=== PATIENT | female | born 1940 | race Caucasian/White ===

== ENCOUNTER 2017-02-11 13:45 | Day surgery (SDC) | payer MEDICARE, BC ==
[2017-02-11 14:41] VITALS: BP 117/63
== END 2017-02-11 13:46 | disposition home or self-care (01) ==
LOC: AMB 13:45
PROVIDERS: ATTEND Ophthalmology
PROC: 085K3ZZ Destruction of Left Lens, Percutaneous Approach (ICD-10-PCS; principal; 2017-02-11 14:35)
DX: H26.492 Other secondary cataract, left eye (principal); I48.91 Unspecified atrial fibrillation; J44.9 Chronic obstructive pulmonary disease, unspecified; J45.909 Unspecified asthma, uncomplicated; Z68.39 Body mass index [BMI] 39.0-39.9, adult

== ENCOUNTER 2017-03-25 12:13 | Day surgery (SDC) | payer MEDICARE, BC ==
[2017-03-25 13:09] VITALS: BP 118/71
== END 2017-03-25 12:14 | disposition home or self-care (01) ==
LOC: AMB 12:13
PROVIDERS: ATTEND Ophthalmology
PROC: 085J3ZZ Destruction of Right Lens, Percutaneous Approach (ICD-10-PCS; principal; 2017-03-25 12:00)
DX: H26.40 Unspecified secondary cataract (principal); I48.91 Unspecified atrial fibrillation; J44.9 Chronic obstructive pulmonary disease, unspecified; Z68.41 Body mass index [BMI] 40.0-44.9, adult

== ENCOUNTER 2017-06-04 05:55 | Inpatient (IN) | payer MEDICARE, BC ==
[2017-06-04] MEDS ORDERED: ceFAZolin SODIUM 1 GM VIAL IV PRN (06:00)
[2017-06-04] MEDS ORDERED: MORPHINE SULFATE 15 MG TABLET.SA PO PRN (06:00)
[2017-06-04] MEDS ORDERED: TRANEXAMIC ACID 1,000 MG in NORMAL SALINE 100 ML IV PRN (06:00)
[2017-06-04] MEDS ORDERED: ROPIVACAINE HCL/PF 100 MG, EPINEPHrine 0.2 MG, KETOROLAC TROMETHAMINE 30 MG in NORMAL S... IJ PRN (06:00)
[2017-06-04] MEDS ORDERED: VANCOMYCIN HCL 1 GM in DEXTROSE 5 % IN WATER 250 ML IV PRN ×2 (06:00)
[2017-06-04] MEDS: RINGER'S SOLUTION,LACTATED 1,000 ML IV PRN ×2 (07:27→07:40)
[2017-06-04] MEDS ORDERED: RINGER'S SOLUTION,LACTATED 1,000 ML IV ONE ×2 (08:25→09:30)
[2017-06-04] MEDS ORDERED: PROMETHAZINE HCL 5 MG in DEXTROSE 5 % IN WATER 50 ML IV PRN ×2 (11:01)
[2017-06-04] MEDS ORDERED: MAGNESIUM HYDROXIDE 30 ML UDC PO PRN (11:01)
[2017-06-04] MEDS ORDERED: diphenhydrAMINE HCL 50 MG/ML VIAL IV PRN (11:01)
[2017-06-04] MEDS ORDERED: MORPHINE SULFATE 4 MG/ML SYRG IV PRN (11:01)
[2017-06-04] MEDS ORDERED: ACETAMINOPHEN 500 MG TABLET PO PRN (11:01)
[2017-06-04] MEDS ORDERED: MAG HYDROX/ALUMINUM HYD/SIMETH 30 ML UDC PO PRN (11:01)
[2017-06-04] MEDS ORDERED: ONDANSETRON HCL/PF 2 MG/ML VIAL IV PRN (11:01)
--- NOTE | 2017-06-04 11:09 | OR ---
Operative Report - Dictated Report Narrative: Date: 06/04/2017 Preoperative diagnosis: Left Knee degenerative joint disease. Postoperative diagnosis: Left Knee degenerative joint disease. Procedure: Left Total knee arthroplasty. Surgeon: David Ayon M.D. Inspector Mechanical: Charan Silveira PA-C Anesthesia: Spinal with regional block and local periarticular joint injection. Complications: None Specimens: Bone for disposal. Estimated blood loss: Minimal. Tourniquet time: 88 Minutes at 325 millimeters of mercury. Retained implants: Depuy Attune size 8 standard lugged cemented posterior stabilized femoral component. Size 7 fixed-bearing cemented tibial platform. 8 by 6 millimeter posterior stabilized cross-linked tibial insert. 38 millimeter medialized patella button. Indications: Dorothy Is a 76-year-old female with bilateral knee pain. This patient was followed in my clinic for period of time with significant complaints of left knee pain consistent with arthritic changes. They had failed conservative measures including but not limited to activity modification , passage of time, medications, and other conservative measures. Patient wished to proceed with surgical treatment. The risks, benefits, and alternatives were discussed in clinic. The risks of , blood clots, bleeding, infection, nerve/tendon blood vessel/ injury, malposition of components, intraoperative fracture, postoperative limited range of motion, persistent pain, failure of components, and need for additional procedures. Patient wished to proceed consent was obtained after answering all questions. Procedure: After marking the correct extremity on the floor, the patient was taken to the operating room. A timeout was performed. IV antibiotics consisting of 2 g of Ancef were administered prior to the procedure. A regional followed by spinal anesthetic was induced by anesthesia. on the operative table with all bony prominences well-padded. Bills catheter was placed and a bump was placed under the operative side buttock. SCDs and KIRSTIN hose were utilized on the nonoperative leg. A well-padded tourniquet was applied to the operative thigh. The operative leg was then pre-scrubbed with alcohol prepped and draped in a standard sterile fashion. After exsanguinating the extremity with an Esmarch bandage, the tourniquet was inflated. After marking out the anterior knee for standard incision centered over the patella, the skin was incised and dissected down to the joint retinaculum. The joint retinaculum was marked out as well as the horizontal axis of the patella, and a standard medial parapatellar arthrotomy was then made. The most proximal aspect of the quadriceps tendon and the patella tendon insertion were protected from release. A partial synovectomy was performed as well as a resection of the infrapatellar fat pad. The distal femoral fat pad proximal to the trochlea was also resected using cautery. The soft tissues were elevated off the medial aspect of the proximal tibia using a Lara elevator ensuring that we did not transect the medial collateral ligament. Upon initial evaluation range of motion was approximately 0 degrees to 100 degrees of flexion. There were signs of advanced arthrosis in all 3 joint spaces. There were large marginal osteophytes which were removed with a rongeur. The knee was hyperflexed and the patella was tucked laterally. Protecting the surrounding soft tissues with Homans, an entry drill was placed down the femoral canal using Whitesides line for guidance into the entry point. The intramedullary femoral alignment oscar was utilized in order to cut the distal femur in 5 of valgus resecting 9 millimeters of bone. Next the distal femur was sized to a size 8. An anterior referencing guide was utilized to place the distal femoral cutting block in 3 of external rotation. This was pinned into place. The rotation was confirmed both visually and based on anatomic landmarks. The 4 in 1 cutting jig of the appropriate size was utilized in order to make all bony cuts. Retractors were utilized in order to protect surrounding soft tissues. This cut did not result in any excessive notching. We then cut the box centered over the distal femur. This allowed for resection of the anterior and posterior cruciate ligaments. I then turned my attention to the preparation of the tibia. Using an extra medullary tibial alignment oscar, 2 millimeters of bone was resected off the medial articular surface. This was made perpendicular to the mechanical axis of the joint with the alignment oscar centered over the ankle mortise. The alignment oscar was parallel to the mechanical axis, centered over the medial one third of the tibial tubercle, paralleling the anterior surface of the tibia. We then turned our attention to the remaining meniscus and soft tissues. These were removed while protecting the surrounding ligaments and soft tissues. The marginal osteophytes off the anterior, posterior, medial, lateral aspects of the femur and tibia were removed. The tibia was sized out to a size 7. Next the tibia was drilled and punched in an externally rotated position as confirmed with a drop oscar. Next the trial femur and a series of tibial inserts were utilized in order to allow for full extension and maximal flexion. It was found that a 6 millimeter insert gave the best range of motion and stability at multiple flexion points as well as at full extension there was less than 2 mm of gapping both medially and laterally. There is minimal anterior translation with the knee at 90 of flexion and no signs of being able to dislocate the knee. The patella was then prepared. The initial thickness was 25 millimeters. This was reamed down to 13 millimeters parallel to the anterior surface of the patella. It was sized out to a size 38 mm medialized patella button. This was then drilled and trialed. Without any medial restraint the patella tracked appropriately and did not sublux or dislocate. At this point, it was felt these were the appropriate sized implants and all trials were removed. The standard periarticular joint injection consisting of ropivacaine, Toradol, and epinephrine were injected into the periarticular joint tissues. The bony surfaces were thoroughly irrigated with a pulsatile- suction saline irrigation device. A bone plug from the prior resected anterior chamfer cut was placed into the drill hole at the distal femur. The bony surfaces were then dried in preparation for placement of the implants. The cement was vacuum mixed per the clothes drier repairer's instructions. The cement was placed on the dry bony surfaces and posterior aspect of the implants. The implants were impacted into place, removing all extruded cement. At this point anesthesia administered tranexamic acid per protocol intravenously. The knee was placed in extension with axial loading with the trial insert while the cement cured. A dilute 0.35% betadyne-saline solution was used to irrigate the knee and allowed to sit in the knee while the cement cured. Once the cement cured, all remaining extruded cement was removed. The knee was placed through a range of motion with the trial insert to ensure appropriate range of motion and stability. Final range of motion was approximately 0 to 125 degrees. The knee was again thoroughly irrigated with pulsatile saline lavage. The final polyethylene insert was then impacted into place ensuring no retained soft tissues. The remaining periarticular joint injection was injected. The knee was then packed with lap sponges which were soaked with dilute betadyne solution and the tourniquet was let down. Pressure was held for approximately 2 minutes and then hemostasis was obtained using electrocautery to coagulate any bleeding vessels. The knee was then placed over a triangle and the arthrotomy was closed with interrupted #1 Vicryl after thoroughly irrigating the joint. The deep and subcutaneous tissues were closed with interrupted oh and 3-0 Vicryl respectively. Skin was closed with a running subcutaneous 3-0 Monocryl and Prineo dressing. 4 x 4's, ABD, Sof-Rol, and a full leg Arvin wrap were applied. All sponge, needle, blade, and instrument counts were correct prior to closing the wounds. Postoperative condition: The patient was awoken and transferred to the postanesthesia care unit in stable condition. Plan is to be admitted to the inpatient medical/surgical floor postoperatively for 24 hours of IV antibiotics , physical therapy, occupational therapy, and medical co-management. Patient will be weightbearing as tolerated with range of motion as tolerated. DVT prophylaxis will be with SCDs, KIRSTIN hose, and pharmacological anticoagulation. Anticipated hospital stay is approximately 2-4 days.
--- NOTE | 2017-06-04 11:28 | OR ---
Anesthesia Procedure Note - Anesthesia Procedure Note Date of Service: 06/04/17 Narrative: Vital Signs - Last Taken Temp 36.5 C 06/04/17 11:00 Pulse 83 06/04/17 11:20 Resp 16 06/04/17 11:20 BP 161/92 06/04/17 11:20 Pulse Ox 95 06/04/17 11:20 O2 Oxygen Delivery Method Room Air 06/04/17 11:26 ANESTHESIA PROCEDURE NOTE Date of Procedure: 06/04/2017. Time of procedure: 739. Performed by: Dawood Torres CRNA Shop Service Technician: None. Preprocedure diagnosis: Left total knee arthroplasty. Post procedure diagnosis: Same. Procedure: Left ultrasound guided femoral block for postoperative analgesia. Indications: The patient is a 76 -year-old female who is requesting a left ultrasound-guided femoral nerve block for postoperative analgesia related to left total knee arthroplasty. Findings: See below. Details of the procedure: The tissue over the intended target site was cleansed with ChloraPrep. 1 ml Lidocaine 1 % was infiltrated to the skin and subcutaneous tissue. Under sterile technique and ultrasound guidance a 21-gauge block needle was inserted anterior to the left femoral nerve . 30 mL's of 0.5% bupivacaine plus epinephrine 1 200,000 was injected after negative aspiration for blood. Spread of local anesthetic surroundind the femoral nerve was observed throughout the injection with ultrasound. The needle was removed intact. No complications were noted. The images were retained in the Hospital medical database . EBL: Minimal. Fluids: N/A. Specimen: N/A. Post procedure condition: The patient tolerated the procedure well. No complications were noted. Thank you for this consultation. Dawood Torres CRNA
[2017-06-04] MEDS: DEXTROSE 5%-LACTATED RINGERS 1,000 ML IV PRN ×2 (11:52→21:09)
[2017-06-04] MEDS: ceFAZolin SODIUM 1 GM in DEXTROSE 5 % IN WATER 100 ML IV SCH ×4 (12:15→19:18)
[2017-06-04] MEDS: SENNOSIDES/DOCUSATE SODIUM 1 TAB TABLET PO SCH (21:13)
[2017-06-05] MEDS: ceFAZolin SODIUM 1 GM in DEXTROSE 5 % IN WATER 100 ML IV SCH ×2 (00:23)
[2017-06-05] MEDS: oxyCODONE HCL/ACETAMINOPHEN 1 TAB TABLET PO PRN ×4 (02:22→20:53)
[2017-06-05] MEDS: DEXTROSE 5%-LACTATED RINGERS 1,000 ML IV PRN (06:06)
[2017-06-05 06:15] LABS: Hematocrit 30.1 % (37.0-47.0); Hemoglobin 9.8 gm/dL (12.5-16.0); Mean Cell Volume 97.4 fl (78-100); Mean Corpuscular Hemoglobin 31.7 pg (27-31); Mean Corpuscular Hgb Conc 32.6 g/dl (32-36); Mean Platelet Volume 10.5 fl (6.0-9.5); Platelet Count 226 K/mm3 (150-450); Red Blood Count 3.09 M/mm3 (4.2-5.4); Red Cell Distribution Width 13.3 % (11.5-14.0); White Blood Count 8.6 K/mm3 (4.0-10.5)
[2017-06-05 06:29] LABS: Anion Gap 8.2 mmol/L (6.8-13.8); BUN/Creatinine Ratio 14.1 (9.0-21.6); Calcium * 8.1 mg/dL (7.9-10.9); Carbon Dioxide 30.7 mmol/L (24-32.6); Estimated Creat Clear 52.2; Potassium 3.9 mmol/L (3.4-4.6)
[2017-06-05] MEDS ORDERED: BUDESONIDE 0.5 MG/2 ML VIAL.NEB IH SCH (07:45)
--- NOTE | 2017-06-05 08:44 | PN ---
Subjective - Date and Time Seen Date: 06/05/17 Time: 08:38 Subjective Narrative: Pt reports no acute events overnight. Pt pain is well controlled. Pt has only needed minimal pain medication. Pt reports no other concerns. Objective - Vitals Vitals: Last Vital Signs Temp 37.2 C 06/05/17 07:25 Pulse 80 06/05/17 08:22 Resp 18 06/05/17 08:22 BP 141/60 06/05/17 07:25 Pulse Ox 89 L 06/05/17 07:25 - Abnormal Lab Findings Abnormal Lab Findings: Abnormal Lab Results 06/05/17 06/05/17 Range/Units 05:55 05:55 RBC 3.09 L (4.2-5.4) M/mm3 Hgb 9.8 L (12.5-16.0) gm/dL Hct 30.1 L (37.0-47.0) % MCH 31.7 H (27-31) pg MPV 10.5 H (6.0-9.5) fl Random Glucose 123 H (70-110) mg/dL - Exam Constitutional: Present: Alert, Oriented x3, Cooperative, No distress Respiratory: Present: no respiratory distress Extremity: Present: other - LLE--> bandage/wrap c/d/i, SILT, cap refill < 3sec, 5/5 FHL/EHL/PF/DF Cauti Physician Documentation - Urinary Catheter Management Urethral (Bills) Date of Insertion: 06/04/17 Time of Insertion: 08:00 Assessment/Plan Plan Narrative: - 76 y/o female s/p post-op day #1 s/p left total knee arthroplasty - WBAT - PT/OT progress as tolerated - Diet PO as tolerated - DVT prophylaxis SCDs, Fox hose, Lovenox for first 10 days post-op - Pain control Percocet PRN - Maintain bandage in place - MRSA carrier, continue contact precautions - Problems/Diagnosis (1) Osteoarthritis Problem: Acute Qualifiers: Osteoarthritis location: knee Laterality: left (2) Status post total left knee replacement Problem: Acute
[2017-06-05] MEDS: ENOXAPARIN SODIUM 40 MG/0.4 ML SYRG SC SCH (09:56)
[2017-06-05] MEDS ORDERED: NON-FORMULARY 1 DOSE DOSE (Albuterol Sulfate 0.63 MG) IH PRN (16:46)
[2017-06-05] MEDS ORDERED: FUROSEMIDE 20 MG TABLET PO SCH (17:00)
[2017-06-05] MEDS: ALBUTEROL SULFATE 2.5 MG/0.5 ML VIAL.NEB IH PRN (18:01)
[2017-06-05] MEDS: BUDESONIDE 0.5 MG/2 ML VIAL.NEB IH SCH (18:02)
[2017-06-05] MEDS: CARVEDILOL 6.25 MG TABLET PO SCH (20:41)
[2017-06-05] MEDS: SENNOSIDES/DOCUSATE SODIUM 1 TAB TABLET PO SCH (20:42)
[2017-06-05] MEDS ORDERED: POTASSIUM CHLORIDE 10 MEQ TABLET.SA PO SCH (21:00)
[2017-06-05] MEDS ORDERED: CALCIUM CARBONATE/VITAMIN D3 1 TAB TABLET PO SCH (21:00)
[2017-06-05] MEDS ORDERED: ATORVASTATIN CALCIUM 40 MG TABLET PO SCH (21:00)
--- NOTE | 2017-06-05 23:58 | PN ---
Subjective - Date and Time Seen Date: 06/05/17 Objective - Vitals Vitals: Last Vital Signs Temp 37.0 C 06/05/17 22:28 Pulse 93 06/05/17 22:28 Resp 20 06/05/17 22:28 BP 137/89 06/05/17 22:28 Pulse Ox 96 06/05/17 22:28 - Abnormal Lab Findings Abnormal Lab Findings: Abnormal Lab Results 06/05/17 06/05/17 Range/Units 05:55 05:55 RBC 3.09 L (4.2-5.4) M/mm3 Hgb 9.8 L (12.5-16.0) gm/dL Hct 30.1 L (37.0-47.0) % MCH 31.7 H (27-31) pg MPV 10.5 H (6.0-9.5) fl Random Glucose 123 H (70-110) mg/dL Cauti Physician Documentation - Urinary Catheter Management Urethral (Bills) Date of Insertion: 06/04/17 Time of Insertion: 08:00 Date of Removal: 06/05/17 Time of Removal: 09:08
[2017-06-06 06:00] LABS: Hematocrit 31.5 % (37.0-47.0); Mean Cell Volume 98.1 fl (78-100); Mean Corpuscular Hemoglobin 31.2 pg (27-31); Mean Corpuscular Hgb Conc 31.7 g/dl (32-36); Mean Platelet Volume 10.7 fl (6.0-9.5); Platelet Count 218 K/mm3 (150-450); Red Blood Count 3.21 M/mm3 (4.2-5.4); Red Cell Distribution Width 13.4 % (11.5-14.0); White Blood Count 10.1 K/mm3 (4.0-10.5)
[2017-06-06] MEDS: BUDESONIDE 0.5 MG/2 ML VIAL.NEB IH SCH (06:15)
[2017-06-06] MEDS: ALBUTEROL SULFATE 2.5 MG/0.5 ML VIAL.NEB IH PRN (06:17)
[2017-06-06 06:31] LABS: Anion Gap 7.6 mmol/L (6.8-13.8); BUN/Creatinine Ratio 15.2 (9.0-21.6); Calcium * 8.4 mg/dL (7.9-10.9); Carbon Dioxide 32.3 mmol/L (24-32.6); Estimated Creat Clear 56.2; Potassium 3.9 mmol/L (3.4-4.6)
[2017-06-06] MEDS: CARVEDILOL 6.25 MG TABLET PO SCH (08:08)
[2017-06-06] MEDS: oxyCODONE HCL/ACETAMINOPHEN 1 TAB TABLET PO PRN ×2 (08:08→12:24)
[2017-06-06] MEDS ORDERED: MULTIVITAMINS 1 CAP CAPSULE PO SCH (09:00)
[2017-06-06] MEDS ORDERED: LORATADINE 10 MG TABLET PO SCH (09:00)
[2017-06-06] MEDS ORDERED: LISINOPRIL 10 MG TABLET PO SCH (09:00)
--- NOTE | 2017-06-06 09:32 | DS ---
(1) Osteoarthritis Problem: Acute Qualifiers: Osteoarthritis location: knee Laterality: left (2) Status post total left knee replacement Problem: Acute (3) COPD (chronic obstructive pulmonary disease) Problem: Chronic Description of Stay: Pt is a 76 y/o female presents with significant osteoarthritis of her left knee. Pt was admitted s/p left total knee arthroplasty. Pt has been preforming PT/OT post-operatively. Pt has been able to ambulate around her room and make it up and back from the bathroom. Pt does have 2 steps to get in her house and will progress to that today. Pt pain has been will controlled, with reports of only mild pain/soreness. Exam reveals full ROM and strength of EHL/FHL/PF/DF, cap refill < 3 sec, SILT, bandages removed incision is has no erythema, drainage , and is intact. Educated pt on the continued monitoring of incision. Pt will be preforming homecare PT, due to social situation patient reports she will be unable to get to the outpatient PT, and will f/u on 06/19 in our outpatient office. Pt will continue with lovenox, kenny oswaldoe for DVT prophy, also continue using percocet for pain control PRN. She can begin an ASA 325 mg PO after she has completed her course of lovenox. Pt will continue to ambulate with a walker. She can have a PO diet as tolerated and WBAT on LLE. Pt is medically stable with Hgb increasing from 9.8 to 10.0 today. Pt can call our outpatient office with any questions or concerns prior to f/u visit. Procedures Performed: see notes below - Left total knee arthorplasty Discharge Disposition: Home self care Disposition: Home self-care Condition: Good Discharge Activity: Activity as tolerated, Weight bearing Discharge Diet: General/regular food Referrals: Candy Schmitz, NILSA [Primary Care Provider] - Problem Oriented Discharge Instructions to Patient/Family: Total Knee Replacement, Care After, [id number] Print Language (Latvian or Sammarinese Available): Latvian Additional Patient Instructions (free text): Follow up with Dr. Ayon on June at 9:45 am Prescriptions (Any new or edited meds): Enoxaparin Sodium [Lovenox] 40 mg SQ Q24H #8 ml oxyCODONE HCL/ACETAMINOPHEN [Percocet 5 MG/325 MG] 2 tab PO Q4H PRN #90 tablet PRN Reason: Moderate Pain Sennosides/Docusate Sodium [Senokot-S] 2 tab PO HS #30 tablet Complete Home Medications List: Complete Home Medication List: Acetaminophen [Tylenol Arthritis] 1,300 mg PO Q8H PRN 05/27/17 Albuterol Sulfate [Albuterol Sulfate 0.63 MG/3ML] 0.63 mg IH Q4H PRN 05/27/17 Atorvastatin Calcium [Lipitor] 40 mg PO HS 05/27/17 Budesonide [Pulmicort Respules] 2 ml IH BID 05/27/17 Calcium Carbonate/Vitamin D3 [Calcium 600-Vit D3 200 Tablet] 1 each PO HS Carvedilol [Coreg] 6.25 mg PO BID 05/27/17 Furosemide [Lasix] 20 mg PO Q2D 05/27/17 Furosemide [Lasix] 40 mg PO Q2D 05/27/17 Lisinopril [Prinivil] 10 mg PO DAILY 05/27/17 Loratadine [Claritin] 10 mg PO DAILY 05/27/17 Multivitamins [Multivitamin Veronika] 1 cap PO DAILY 05/27/17 Potassium Chloride [Klor-Con M20] 10 meq PO HS 05/27/17 Enoxaparin Sodium [Lovenox] 40 mg SQ Q24H #8 ml 06/06/17 Sennosides/Docusate Sodium [Senokot-S] 2 tab PO HS #30 tablet 06/06/17 oxyCODONE HCL/ACETAMINOPHEN [Percocet 5 MG/325 MG] 2 tab PO Q4H PRN #90 tablet 06/06/17
[2017-06-06] MEDS: ENOXAPARIN SODIUM 40 MG/0.4 ML SYRG SC SCH (09:59)
[2017-06-06 13:22] VITALS: BP 119/49
[2017-06-06] MEDS ORDERED: FUROSEMIDE 40 MG TABLET PO SCH (17:00)
== END 2017-06-06 14:43 | disposition home health service (06) | DRG 470 ==
LOC: MS 05:55
PROVIDERS: ADMIT Orthopaedic Surgery; ATTEND Orthopaedic Surgery
PROC: 0SRD0J9 Replacement of Left Knee Joint with Synthetic Substitute, Cemented, Open Approach (ICD-10-PCS; principal; 2017-06-04 08:00)
DX: M17.0 Bilateral primary osteoarthritis of knee (principal); J44.9 Chronic obstructive pulmonary disease, unspecified; I25.10 Atherosclerotic heart disease of native coronary artery without angina pectoris; I10 Essential (primary) hypertension; Z98.61 Coronary angioplasty status; Z79.82 Long term (current) use of aspirin

== ENCOUNTER 2017-11-12 06:29 | Inpatient (IN) | payer MEDICARE, BC ==
[~2017-11-12 06:29] MED LIST: MORPHINE SULFATE 15 MG TABLET.SA PO PRN; RINGER'S SOLUTION,LACTATED 1,000 ML IV PRN; ROPIVACAINE HCL/PF 100 MG, KETOROLAC TROMETHAMINE 30 MG, EPINEPHrine 0.2 MG in NORMAL S... IJ PRN; TRANEXAMIC ACID 1,000 MG in NORMAL SALINE 100 ML IV PRN; ceFAZolin SODIUM 1 GM VIAL IV PRN
[2017-11-12] MEDS ORDERED: RINGER'S SOLUTION,LACTATED 1,000 ML IV ONE ×2 (07:40→09:02)
[2017-11-12] MEDS ORDERED: oxyCODONE HCL/ACETAMINOPHEN 1 TAB TABLET PO PRN (11:05)
[2017-11-12] MEDS ORDERED: MORPHINE SULFATE 2 MG/ML DISP.SYRIN IV PRN (11:05)
[2017-11-12] MEDS ORDERED: ONDANSETRON HCL/PF 2 MG/ML VIAL IV PRN (11:05)
[2017-11-12] MEDS ORDERED: diphenhydrAMINE HCL 50 MG/ML VIAL IV PRN (11:05)
[2017-11-12] MEDS ORDERED: MAGNESIUM HYDROXIDE 30 ML UDC PO PRN (11:05)
[2017-11-12] MEDS ORDERED: ACETAMINOPHEN 500 MG TABLET PO PRN (11:05)
[2017-11-12] MEDS ORDERED: PROMETHAZINE HCL 5 MG in DEXTROSE 5 % IN WATER 50 ML IV PRN ×2 (11:05)
[2017-11-12] MEDS ORDERED: MAG HYDROX/ALUMINUM HYD/SIMETH 30 ML UDC PO PRN (11:05)
[2017-11-12] MEDS ORDERED: ALBUTEROL SULFATE 5 MG/ML BTL IH PRN (11:08)
--- NOTE | 2017-11-12 11:12 | OR ---
Anesthesia Procedure Note - Anesthesia Procedure Note Date of Service: 11/12/17 Narrative: Vital Signs - Last Taken Temp 37.1 C 11/12/17 11:00 Pulse 82 11/12/17 11:05 Resp 19 11/12/17 11:05 BP 131/68 11/12/17 11:05 Pulse Ox 100 11/12/17 11:05 O2 Oxygen Delivery Method Mask 11/12/17 11:10 ANESTHESIA PROCEDURE NOTE Date of Procedure: 11/12/2017. Time of procedure: 739. Performed by: Dawood Torres CRNA Fine Grade Bulldozer Operator: None. Preprocedure diagnosis: Right knee degenerative disc disease. Post procedure diagnosis: Same. Procedure: Right ultrasound guided adductor canal block with insertion of indwelling catheter for continous nerve block postoperative analgesia. Indications: The patient is a 77 -year-old female, who is requesting a right ultrasound-guided abductor canal block for postoperative analgesia related to right total knee arthroplasty. Findings: See below. Details of the procedure: The tissue over the intended target site was cleansed with ChloraPrepand draped in a sterile fashion. 2 ml Lidocaine 1 % was infiltrated to the skin and subcutaneous tissue at the intended target site. Under sterile technique and ultrasound guidance a 18-gauge Tuohy needle was inserted through the right sartorius muscle to the saphenous nerve just anterior and medial to the superficial femoral artery and vein. 15 mL's of 0.5% bupivacaine was injected after negative aspiration for blood. Needle tip and spread of local anesthetic surrounding the saphenous nerve was observed throughout the injection with real time ultrasound visualization. The Tuohy needle was then removed intact. No complications were noted. The images were retained in the Hospital medical database . EBL: Minimal. Fluids: N/A. Specimen: N/A. Post procedure condition: The patient tolerated the procedure well. No complications were noted. Thank you for this consultation. Dawood Torres CRNA
[2017-11-12] MEDS ORDERED: FUROSEMIDE 40 MG TABLET PO SCH ×2 (11:15→13:00)
[2017-11-12] MEDS ORDERED: FUROSEMIDE 20 MG TABLET PO SCH (11:15)
[2017-11-12] MEDS: NORMAL SALINE 1,000 ML IV PRN ×2 (12:09→20:41)
--- NOTE | 2017-11-12 12:22 | OR ---
Operative Report - Dictated Report Narrative: Date: 11/12/2017 Preoperative diagnosis: Right Knee degenerative joint disease. Postoperative diagnosis: Right Knee degenerative joint disease. Procedure: Right Total knee arthroplasty. Surgeon: David Ayon M.D. Staff Nuclear Medicine Technologist: Charan Silveira PA-C Anesthesia: Spinal with regional block and local periarticular joint injection. Complications: None Specimens: Bone for disposal. Estimated blood loss: Minimal. Tourniquet time: 86 Minutes at 300 millimeters of mercury. Retained implants: Depuy Attune size 8 standard lugged cemented posterior stabilized femoral component. Size 6 fixed-bearing cemented tibial platform. 8 by 6 millimeter posterior stabilized cross-linked tibial insert. 38 millimeter medialized patella button. Indications: Dorothy is a 77-year-old female community ambulator. This patient was followed in my clinic for period of time with significant complaints of right knee pain consistent with arthritic changes. They had failed conservative measures including but not limited to activity modification , passage of time, medications, and other conservative measures. Patient wished to proceed with surgical treatment. The risks, benefits, and alternatives were discussed in clinic. The risks of , blood clots, bleeding, infection, nerve/tendon blood vessel/ injury, malposition of components, intraoperative fracture, postoperative limited range of motion, persistent pain, failure of components, and need for additional procedures. Patient wished to proceed consent was obtained after answering all questions. Procedure: After marking the correct extremity on the floor, the patient was taken to the operating room. A timeout was performed. IV antibiotics consisting of 2 g of Ancef were administered prior to the procedure. A regional followed by spinal anesthetic was induced by anesthesia. on the operative table with all bony prominences well-padded. Bills catheter was placed and a bump was placed under the operative side buttock. SCDs and KIRSTIN hose were utilized on the nonoperative leg. A well-padded tourniquet was applied to the operative thigh. The operative leg was then pre-scrubbed with alcohol prepped and draped in a standard sterile fashion. After exsanguinating the extremity with an Esmarch bandage, the tourniquet was inflated. After marking out the anterior knee for standard incision centered over the patella, the skin was incised and dissected down to the joint retinaculum. The joint retinaculum was marked out as well as the horizontal axis of the patella, and a standard medial parapatellar arthrotomy was then made. The most proximal aspect of the quadriceps tendon and the patella tendon insertion were protected from release. A partial synovectomy was performed as well as a resection of the infrapatellar fat pad. The distal femoral fat pad proximal to the trochlea was also resected using cautery. The soft tissues were elevated off the medial aspect of the proximal tibia using a Lara elevator ensuring that we did not transect the medial collateral ligament. Upon initial evaluation range of motion was approximately 5 degrees to 95 degrees of flexion. There were signs of advanced arthrosis in the medial and patellofemoral joint spaces. There were large marginal osteophytes which were removed with a rongeur. The knee was hyperflexed and the patella was tucked laterally. Protecting the surrounding soft tissues with Homans, an entry drill was placed down the femoral canal using Whitesides line for guidance into the entry point. The intramedullary femoral alignment oscar was utilized in order to cut the distal femur in 5 of valgus resecting 10 millimeters of bone. Next the distal femur was sized to a size 8. A posterior referencing guide was utilized to place the distal femoral cutting block in 3 of external rotation. This was pinned into place. The rotation was confirmed both visually and based on anatomic landmarks. The 4 in 1 cutting jig of the appropriate size was utilized in order to make all bony cuts. Retractors were utilized in order to protect surrounding soft tissues. This cut did not result in any excessive notching. We then cut the box centered over the distal femur. This allowed for resection of the anterior and posterior cruciate ligaments. I then turned my attention to the preparation of the tibia. Using an extra medullary tibial alignment oscar, 3.5 millimeters of bone was resected off the medial articular surface. This was made perpendicular to the mechanical axis of the joint with the alignment oscar centered over the ankle mortise. The alignment oscar was parallel to the mechanical axis, centered over the medial one third of the tibial tubercle, paralleling the anterior surface of the tibia. We then turned our attention to the remaining meniscus and soft tissues. These were removed while protecting the surrounding ligaments and soft tissues. The marginal osteophytes off the anterior, posterior, medial, lateral aspects of the femur and tibia were removed. The tibia was sized out to a size 6. Next the trial femur and a series of tibial inserts were utilized in order to allow for full extension and maximal flexion. It was found that a 8 x 6 millimeter insert gave the best range of motion and stability at multiple flexion points as well as at full extension there was less than 2 mm of gapping both medially and laterally. There was minimal anterior translation with the knee at 90 of flexion and no signs of being able to dislocate the knee. Next the tibia was drilled and punched in an externally rotated position as confirmed with a drop oscar. The patella was then prepared. The initial thickness was 25 millimeters. This was reamed down to 15 millimeters parallel to the anterior surface of the patella. It was sized out to a size 38 medialized patella button. This was then drilled and trialed. Without any medial restraint the patella tracked appropriately and did not sublux or dislocate. At this point, it was felt these were the appropriate sized implants and all trials were removed. The standard periarticular joint injection consisting of ropivacaine, Toradol, and epinephrine were injected into the periarticular joint tissues. The bony surfaces were thoroughly irrigated with a pulsatile- suction saline irrigation device. A bone plug from the prior resected anterior chamfer cut was placed into the drill hole at the distal femur. The bony surfaces were then dried in preparation for placement of the implants. The cement was vacuum mixed per the log loader's instructions. The cement was placed on the dry bony surfaces and posterior aspect of the implants. The implants were impacted into place, removing all extruded cement. At this point anesthesia administered tranexamic acid per protocol intravenously. The knee was placed in extension with axial loading with the trial insert while the cement cured. A dilute 0.35% betadyne-saline solution was used to irrigate the knee and allowed to sit in the knee while the cement cured. Once the cement cured, all remaining extruded cement was removed. The knee was placed through a range of motion with the trial insert to ensure appropriate range of motion and stability. Final range of motion was approximately 0 to 120 degrees. The knee was again thoroughly irrigated with pulsatile saline lavage. The final polyethylene insert was then impacted into place ensuring no retained soft tissues. The remaining periarticular joint injection was injected. The knee was then packed with lap sponges which were soaked with dilute betadyne solution and the tourniquet was let down. Pressure was held for approximately 2 minutes and then hemostasis was obtained using electrocautery to coagulate any bleeding vessels. The knee was then placed over a triangle and the arthrotomy was closed with interrupted #1 Vicryl after thoroughly irrigating the joint. The deep and subcutaneous tissues were closed with interrupted 0 and 3-0 Vicryl respectively. Skin was closed with a running subcutaneous 3-0 Monocryl and Prineo dressing. 4 x 4's, ABD, Sof-Rol, and a full leg Arvin wrap were applied. All sponge, needle, blade, and instrument counts were correct prior to closing the wounds. Postoperative condition: The patient was awoken and transferred to the postanesthesia care unit in stable condition. Plan is to be admitted to the inpatient medical/surgical floor postoperatively for 24 hours of IV antibiotics , physical therapy, occupational therapy, and medical co-management. Patient will be weightbearing as tolerated with range of motion as tolerated. DVT prophylaxis will be with SCDs, KIRSTIN hose, and pharmacological anticoagulation. Anticipated hospital stay is approximately 2-4 days.
[2017-11-12] MEDS: ceFAZolin SODIUM 2 GM in DEXTROSE 5 % IN WATER 50 ML IV SCH ×4 (13:22→20:43)
[2017-11-12] MEDS: oxyCODONE HCL/ACETAMINOPHEN 1 TAB TABLET PO PRN ×2 (14:05→22:27)
[2017-11-12] MEDS: BUDESONIDE 0.5 MG/2 ML VIAL.NEB IH SCH (19:22)
[2017-11-12] MEDS: POTASSIUM CHLORIDE 10 MEQ TABLET.SA PO SCH (20:44)
[2017-11-12] MEDS: CARVEDILOL 6.25 MG TABLET PO SCH (20:44)
[2017-11-12] MEDS: ATORVASTATIN CALCIUM 40 MG TABLET PO SCH (20:45)
[2017-11-12] MEDS: SENNOSIDES/DOCUSATE SODIUM 1 TAB TABLET PO SCH (20:45)
[2017-11-13] MEDS: oxyCODONE HCL/ACETAMINOPHEN 1 TAB TABLET PO PRN ×4 (02:37→20:04)
[2017-11-13] MEDS: ceFAZolin SODIUM 2 GM in DEXTROSE 5 % IN WATER 50 ML IV SCH ×2 (03:57)
[2017-11-13 06:19] LABS: Hematocrit 31.3 % (37.0-47.0); Hemoglobin 9.9 gm/dL (12.5-16.0); Mean Cell Volume 95.4 fl (78-100); Mean Corpuscular Hemoglobin 30.2 pg (27-31); Mean Corpuscular Hgb Conc 31.6 g/dl (32-36); Platelet Count 233 K/mm3 (150-450); Red Blood Count 3.28 M/mm3 (4.2-5.4); Red Cell Distribution Width 14.8 % (11.5-14.0); White Blood Count 6.9 K/mm3 (4.0-10.5)
[2017-11-13] MEDS: BUDESONIDE 0.5 MG/2 ML VIAL.NEB IH SCH ×2 (06:26→18:25)
[2017-11-13 06:55] LABS: Anion Gap 10.2 mmol/L (6.8-13.8); BUN/Creatinine Ratio 20.5 (9.0-21.6); Calcium * 7.9 mg/dL (7.9-10.9); Carbon Dioxide 29.7 mmol/L (24-32.6); Potassium 3.9 mmol/L (3.4-4.6)
[2017-11-13] MEDS: LISINOPRIL 10 MG TABLET PO SCH (08:37)
[2017-11-13] MEDS: CARVEDILOL 6.25 MG TABLET PO SCH ×2 (08:37→20:05)
[2017-11-13] MEDS ORDERED: FUROSEMIDE 20 MG TABLET PO SCH (09:00)
--- NOTE | 2017-11-13 09:05 | PN ---
Subjective - Date and Time Seen Date: 11/13/17 Time: 07:25 Subjective Narrative: She reports no acute events overnight. Pain is well controlled. States she feels a little stiff, reports she has already been up and waking and wants to eat breakfast. Objective - Vitals Vitals: Last Vital Signs Temp 37 C 11/13/17 07:43 Pulse 80 11/13/17 08:37 Resp 18 11/13/17 07:43 BP 117/59 11/13/17 08:37 Pulse Ox 94 11/13/17 07:43 - Abnormal Lab Findings Abnormal Lab Findings: Abnormal Lab Results 11/13/17 11/13/17 Range/Units 06:14 06:14 RBC 3.28 L (4.2-5.4) M/mm3 Hgb 9.9 L (12.5-16.0) gm/dL Hct 31.3 L (37.0-47.0) % MCHC 31.6 L (32-36) g/dl RDW 14.8 H (11.5-14.0) % MPV 11.0 H (6.0-9.5) fl Random Glucose 118 H (70-110) mg/dL - Exam Constitutional: Present: Alert, Cooperative, No distress Respiratory: Present: no respiratory distress Extremity: Present: other - RLE--> mild ttp over R knee, SILT, cap refill < 3 sec distal extremity, PF/DF 5/5, bandages c/d/i Thoughts: Present: normal thought pattern Cauti Physician Documentation - Urinary Catheter Management 2-way Urethral Date of Insertion: 11/12/17 Time of Insertion: 08:15 Date of Removal: 11/13/17 Time of Removal: 06:29 Assessment/Plan Plan Narrative: -77 y/o female post-op day #1 s/p R TKA - WBAT with assistive device - PT/OT progress as tolerated - PO diet as tolerated - DVT prophy: lovenox, SCDs in bed - Oral pain medication PRN - Hgb 9.9, continue to monitor - bandages maintain in place - Problems/Diagnosis (1) Status post total right knee replacement Problem: Acute
[2017-11-13] MEDS: ENOXAPARIN SODIUM 40 MG/0.4 ML SYRG SC SCH (10:16)
[2017-11-13] MEDS: POTASSIUM CHLORIDE 10 MEQ TABLET.SA PO SCH (20:05)
[2017-11-13] MEDS: SENNOSIDES/DOCUSATE SODIUM 1 TAB TABLET PO SCH (20:06)
[2017-11-13] MEDS: ATORVASTATIN CALCIUM 40 MG TABLET PO SCH (20:06)
[2017-11-14 06:00] LABS: Hematocrit 29.7 % (37.0-47.0); Hemoglobin 9.4 gm/dL (12.5-16.0); Mean Cell Volume 94.9 fl (78-100); Mean Corpuscular Hgb Conc 31.6 g/dl (32-36); Mean Platelet Volume 11.1 fl (6.0-9.5); Platelet Count 222 K/mm3 (150-450); Red Blood Count 3.13 M/mm3 (4.2-5.4); Red Cell Distribution Width 14.8 % (11.5-14.0); White Blood Count 7.8 K/mm3 (4.0-10.5)
[2017-11-14 06:08] LABS: Anion Gap 8.9 mmol/L (6.8-13.8); BUN/Creatinine Ratio 18.7 (9.0-21.6); Calcium * 8.2 mg/dL (7.9-10.9); Potassium 3.9 mmol/L (3.4-4.6)
[2017-11-14] MEDS: BUDESONIDE 0.5 MG/2 ML VIAL.NEB IH SCH (06:17)
[2017-11-14] MEDS: oxyCODONE HCL/ACETAMINOPHEN 1 TAB TABLET PO PRN ×2 (06:29→11:09)
[2017-11-14] MEDS: LISINOPRIL 10 MG TABLET PO SCH (08:50)
[2017-11-14] MEDS: CARVEDILOL 6.25 MG TABLET PO SCH (08:50)
[2017-11-14] MEDS: ENOXAPARIN SODIUM 40 MG/0.4 ML SYRG SC SCH (09:32)
--- NOTE | 2017-11-14 10:25 | DS ---
Description of Stay: Patient was taken to the OR on 11/12/17 for R total knee arthroplasty. She tolerated the procedure well and there were no complications. She was admitted to the floor postoperatively for PT and medical monitoring. She tolerated a regular diet, resumed normal bladder and bowel function, and pain was well controlled with oral pain medications. She made gains with therapy and was deemed stable for discharge home with home health on 11/14/17. Procedures Performed: see notes below List Procedures: R total knee arthroplasty - 11/12/17 Discharge Location: Home [facility] Disposition: Home Health Service Condition: Good Discharge Activity: Activity as tolerated Discharge Diet: General/regular food Jail Therapy: Physicial Therapy Referrals: Candy Schmitz, COMMUNITY LIAISON OFFICER [Primary Care Provider] - Additional Patient Instructions (free text): [facility]. Please call report and fax at discharge. Follow up with Dr. Ayon 11/27 at 10:00. Orthopedic Discharge Instructions: 1. WBAT, ROM as tolerated. 2. CPM machine - advance flexion setting as tolerated to a goal of 110 degrees, may use up to 20 hrs daily. 3. Ice machine to be used as needed. 4. Oral pain medication as needed. 5. Monitor incision for any drainage or peeling up of the Prineo dressing. If either is noted, contact the Orthopedic office for instructions and keep incision completely dry. 6. Outpatient PT ordered. 7. 10 days of lovenox followed by 6 weeks of 325 mg aspirin daily for DVT ppx. 8. Call the Orthopedic clinic at [phone] with any questions or concerns. Prescriptions (Any new or edited meds): Aspirin [Aspirin Enteric Coated] 325 mg PO DAILY #42 tablet. Enoxaparin Sodium [Lovenox] 40 mg SC Q24H 8 Days #8 disp.syrin oxyCODONE HCL/ACETAMINOPHEN [Percocet 5 MG/325 MG] 1 - 2 tab PO Q4H PRN #90 tablet PRN Reason: Severe Pain (Pain Scale 7-10) Sennosides/Docusate Sodium [Senokot-S] 2 tab PO HS 30 Days #60 tablet Complete Home Medications List: Complete Home Medication List: Acetaminophen [Tylenol Arthritis] 1,300 mg PO Q8H PRN 05/27/17 Albuterol Sulfate [Albuterol Sulfate 0.63 MG/3ML] 0.63 mg IH Q4H PRN 05/27/17 Atorvastatin Calcium [Lipitor] 40 mg PO HS 05/27/17 Budesonide [Pulmicort Respules] 2 ml IH BID 05/27/17 Calcium Carbonate/Vitamin D3 [Calcium 600-Vit D3 200 Tablet] 1 each PO HS Carvedilol [Coreg] 6.25 mg PO BID 05/27/17 Furosemide [Lasix] 20 mg PO Q48H 05/27/17 Furosemide [Lasix] 40 mg PO Q48H 05/27/17 Lisinopril [Prinivil] 10 mg PO DAILY 05/27/17 Loratadine [Claritin] 10 mg PO DAILY 05/27/17 Multivitamins [Multivitamin Veronika] 1 cap PO DAILY 05/27/17 Potassium Chloride [Klor-Con M20] 10 meq PO HS 05/27/17 Naproxen Sodium [Aleve] 220 mg PO BID PRN 10/30/17 Aspirin [Aspirin Enteric Coated] 325 mg PO DAILY #42 tablet. 11/14/17 Enoxaparin Sodium [Lovenox] 40 mg SC Q24H 8 Days #8 disp.syrin 11/14/17 Sennosides/Docusate Sodium [Senokot-S] 2 tab PO HS 30 Days #60 tablet 11/14/17 oxyCODONE HCL/ACETAMINOPHEN [Percocet 5 MG/325 MG] 1 - 2 tab PO Q4H PRN #90 tablet 11/14/17 Amb Orders for Discharge: PT Evaluation and Treatment Facility: [facility], Location: Rehabilitation Services
[2017-11-14 14:39] VITALS: BP 129/57
== END 2017-11-14 14:40 | disposition home health service (06) | DRG 470 ==
LOC: MS 06:29 → EDSTATUS 08:00
PROVIDERS: ADMIT Orthopaedic Surgery; ATTEND Orthopaedic Surgery
PROC: 0SRC0J9 Replacement of Right Knee Joint with Synthetic Substitute, Cemented, Open Approach (ICD-10-PCS; principal; 2017-11-12)
DX: M17.0 Bilateral primary osteoarthritis of knee (principal); J44.9 Chronic obstructive pulmonary disease, unspecified; Z79.82 Long term (current) use of aspirin; Z87.440 Personal history of urinary (tract) infections